=== PATIENT | male | born 1965 | race Caucasian/White ===

== ENCOUNTER → 2019-05-10 | Outpatient (CLI) | payer OTHER | LOC: CAT 09:20 | DX: Z13.6 Encounter for screening for cardiovascular disorders (principal); E78.00 Pure hypercholesterolemia, unspecified; I25.10 Atherosclerotic heart disease of native coronary artery without angina pectoris ==

== ENCOUNTER → 2019-09-11 | Outpatient (CLI) | payer OTHER | LOC: MRI 13:59 | DX: S83.241A Other tear of medial meniscus, current injury, right knee, initial encounter (principal); M76.891 Other specified enthesopathies of right lower limb, excluding foot; X58.XXXA Exposure to other specified factors, initial encounter; Y93.89 Activity, other specified; Y92.89 Other specified places as the place of occurrence of the external cause; Y99.8 Other external cause status ==

== ENCOUNTER → 2019-12-05 | Outpatient (CLI) | payer OTHER | LOC: CAT 10:19 | PROVIDERS: ATTEND Urology | DX: K80.20 Calculus of gallbladder without cholecystitis without obstruction (principal); N40.1 Benign prostatic hyperplasia with lower urinary tract symptoms; J98.11 Atelectasis; Z90.5 Acquired absence of kidney ==